=== PATIENT | male | born 1990 | race African-American/Black ===

== ENCOUNTER 2016-09-14 13:15 | Emergency (ER) | payer MEDICAID ==
[~2016-09-14] VITALS: Ht 172.7 cm; Wt 99.8 kg
[2016-09-14 13:29] VITALS: BP 145/77
== END 2016-09-14 13:45 | disposition left against medical advice (07) ==
LOC: ER 13:18
DX: R05 Cough (principal); J02.9 Acute pharyngitis, unspecified; F17.210 Nicotine dependence, cigarettes, uncomplicated
CPT/HCPCS: 99281; A4606; Z7610; Z7502